=== PATIENT | male | born 1995 ===

== ENCOUNTER 2021-07-03 06:34 | Emergency (ER) | payer OTHER ==
[~2021-07-03] VITALS: Ht 177.8 cm; Wt 66.2 kg
[~2021-07-03 06:34] MED LIST: PROVENTIL0.5 ML/2.5; SINGULAIR5 MG
[2021-07-03] MEDS ORDERED: TUSSI PRES-B L480 ML PO (11:45)
[2021-07-03] MEDS ORDERED: ZITHROMAX500 MG PO (11:45)
== END 2021-07-03 12:44 | disposition home or self-care (01) ==
LOC: ER 06:34
DX: B34.9 Viral infection, unspecified (principal); Z03.818 Encounter for observation for suspected exposure to other biological agents ruled out